=== PATIENT | female | born 1965 | race Caucasian/White ===

== ENCOUNTER 2016-08-17 13:24 | Emergency (ER) | payer MEDICARE, OTHER ==
[2016-08-17 14:00] LABS: HEMOGLOBIN 14.5 gm/dl (12.3-15.3); RED BLOOD COUNT 4.83 M/UL (4.00-5.10); WHITE BLOOD COUNT 3.8 K/UL (4.5-11.0)
[2016-08-17 14:28] LABS: BUN/CREATININE RATIO 20 (0-10)
== END 2016-08-17 18:11 | disposition home or self-care (01) ==
LOC: ER1 13:24
PROVIDERS: Emergency Medicine
DX: J20.9 Acute bronchitis, unspecified (principal); J06.9 Acute upper respiratory infection, unspecified; E78.5 Hyperlipidemia, unspecified; I10 Essential (primary) hypertension; K21.9 Gastro-esophageal reflux disease without esophagitis; F17.210 Nicotine dependence, cigarettes, uncomplicated; Z88.2 Allergy status to sulfonamides
CPT/HCPCS: 36415; 71010; 80053; 81001; 82550; 82553; 83874; 84484; 85025; 93005; 94640; 94664; 96372; 96374; 96375; 99285; J0696; J2930; J7050